=== PATIENT | female | born 1985 | race Caucasian/White ===

== ENCOUNTER 2024-04-14 21:11 | Day surgery (SDC) | payer BC | END 2024-04-15 00:33 | disposition home or self-care (01) | LOC: CSHLD/OP 21:11 | PROVIDERS: ATTEND Obstetrics & Gynecology | DX: O36.8130 Decreased fetal movements, third trimester, not applicable or unspecified (principal); O34.211 Maternal care for low transverse scar from previous cesarean delivery; O09.523 Supervision of elderly multigravida, third trimester; Z79.82 Long term (current) use of aspirin; Z79.899 Other long term (current) drug therapy; Z3A.38 38 weeks gestation of pregnancy | CPT/HCPCS: 76819 ==